=== PATIENT | male | born 1995 | race Caucasian/White ===

== ENCOUNTER 2021-12-04 17:38 | Emergency (ER) | payer MEDICAID ==
[~2021-12-04] VITALS: Ht 167.6 cm; Wt 73.0 kg
[2021-12-04] MEDS ORDERED: TOPUD PO (19:24)
[2021-12-04] MEDS ORDERED: IBUP-2028 MT (19:24)
[2021-12-04 19:32] VITALS: BP 112/66
== END 2021-12-04 19:33 | disposition home or self-care (01) ==
LOC: ER 17:38
DX: U07.1 COVID-19 (principal)
CPT/HCPCS: 99283; C9803; U0003; U0005

== ENCOUNTER 2022-07-23 17:21 | Emergency (ER) | payer MEDICAID ==
[~2022-07-23] VITALS: Ht 167.6 cm; Wt 78.0 kg
[~2022-07-23 17:21] MED LIST: IBUP-2028 MT; TOPUD PO
[2022-07-23 17:35] VITALS: BP 111/61
== END 2022-07-23 20:51 | disposition left against medical advice (07) ==
LOC: ER 17:21
DX: Z53.21 Procedure and treatment not carried out due to patient leaving prior to being seen by health care provider (principal)

== ENCOUNTER 2022-09-24 12:06 | Emergency (ER) | payer MEDICAID, OTHER ==
[~2022-09-24] VITALS: Ht 167.6 cm; Wt 68.0 kg
[2022-09-24 12:14] VITALS: BP 135/83
[2022-09-24] MEDS ORDERED: ACETAMINOPHEN 325MG TABLET PO ONE (15:45)
== END 2022-09-24 18:33 | disposition home or self-care (01) ==
LOC: ER 12:06
DX: J06.9 Acute upper respiratory infection, unspecified (principal); Z20.822 Contact with and (suspected) exposure to COVID-19
CPT/HCPCS: 87426; 99283; C9803